=== PATIENT | female | born 1960 | race Caucasian/White ===

== ENCOUNTER 2021-08-20 11:22 | Emergency (ER) | payer MEDICARE, SELFPAY ==
--- NOTE | 2021-08-20 11:32 | ED.URI ---
HPI - URI/Sore Throat General Chief Complaint: Upper Respiratory Infection Stated Complaint: runny nose,cough Time Seen by Provider: 08/20/21 11:32 Source: patient Mode of arrival: ambulatory Limitations: no limitations History of Present Illness HPI Narrative: Ms. Gutierrez is a 60-year-old female patient presenting to the clinic today with complaints of a cough and a runny nose times 6 days. She reports she has a productive cough with sometimes clear, yellow, green phlegm. She is a current smoker. States that she has a lot of pressure over her left maxillary sinus. Denies any fever or chills. Denies any known strep exposure, influenza exposure or COVID exposure. Related Data Home Medications Medication Instructions Recorded Confirmed albuterol sulfate 90 mcg/actuation 1 inh inhalation DIRECTED 04/05/19 aerosol inhaler atorvastatin 40 mg tablet (Lipitor) 40 mg PO DAILY 08/20/21 08/20/21 bupropion HCl 150 mg 24 hr tablet, 150 mg PO DAILY 08/20/21 08/20/21 extended release levothyroxine 112 mcg tablet 112 mcg PO DAILY 08/20/21 08/20/21 lisinopril 20 mg tablet 20 tablet DAILY 08/20/21 08/20/21 varenicline 0.5 mg tablet 0.5 mg PO DIRECTED 08/20/21 08/20/21 Allergies Allergy/AdvReac Type Severity Reaction Status Date / Time hydrochlorothiazide Allergy Rash Verified 08/20/21 11:46 ADHESIVE TAPE Allergy Mild BLISTERS Uncoded 08/20/21 11:46 Review of Systems Review of Systems: Pertinent positives per HPI. Patient denies any fever, chills, rash, headache, visual changes, dizziness, cough, runny nose, sore throat, shortness of breath, chest pain, palpitations, nausea, vomiting, diarrhea, constipation, abdominal pain, or any urinary issues. [facility] Family History Family History Father Hypertension Family history of heart disease in male family member before age 55 Sibling Hypertension Family history of liver disease Family history of lung cancer Mother Family history of lung cancer Social History Social History Alcohol intake: never Comments At the time of my signature, I reviewed and agree with the nursing past medical, surgical, social, and family history. There is no relevant family history pertinent to the patient complaint. Exam Narrative: General: Well-developed, well nourished, in no apparent distress Head: Normocephalic, atraumatic Eyes: Pupils equally round and reactive to light bilaterally, EOM intact, sclera and conjunctive clear, no discharge, lids normal Ears: TMs intact and clear, ear canals clear, no drainage, grossly hearing normal. Nose: Nares patent, clear nasal discharge moderate inflammation, sinus tenderness over the left maxillary sinus Mouth: Oropharynx without lesions or masses, good dentition, MMM. Postnasal drip Neck: Supple, trachea midline, no enlargement of anterior or posterior cervical nodes, no thyroid masses or goiter palpable. Cardio: Regular rate and rhythm, s1 and s2 normal, no murmur appreciated. Resp: Clear to auscultation bilaterally with moderate airflow, no rhonchi, rales, wheezing or rubs Course Course Emergency Course: Portions of this record may have been created with voice recognition software. Level of Care: Express Care Visit Vital Signs Vital signs: Vital Signs Temperature 36.4 C 08/20/21 11:40 Pulse Rate 69 08/20/21 11:40 Respiratory Rate 20 08/20/21 11:40 Blood Pressure 125/70 08/20/21 11:40 Pulse Oximetry 97 08/20/21 11:40 Oxygen Delivery Room Air 08/20/21 11:40 Temperature 36.4 C 08/20/21 11:40 Pulse Rate 69 08/20/21 11:40 Respiratory Rate 20 08/20/21 11:40 Blood Pressure 125/70 08/20/21 11:40 Pulse Oximetry 97 08/20/21 11:40 Oxygen Delivery Room Air 08/20/21 11:40 Vital signs reviewed MDM - URI/Sore Throat MDM Narrative Medical decision making narrative: At
[2021-08-20 11:40] VITALS: BP 125/70; PULSE 69; RESP 20; TEMP 36.4; O2SAT 97
== END 2021-08-20 11:58 | disposition home or self-care (01) ==
PROVIDERS: Emergency Provider Nurse Practitioner Family
DX: J06.9 Acute upper respiratory infection, unspecified (principal); E78.00 Pure hypercholesterolemia, unspecified; I10 Essential (primary) hypertension; J44.9 Chronic obstructive pulmonary disease, unspecified; F17.200 Nicotine dependence, unspecified, uncomplicated; E03.9 Hypothyroidism, unspecified; Z85.43 Personal history of malignant neoplasm of ovary
CPT/HCPCS: 99213; G0463

== ENCOUNTER 2021-08-22 14:29 | Emergency (ER) | payer MEDICARE, SELFPAY ==
--- NOTE | ~2021-08-22 | XR_ITS ---
EXAMINATION: XR chest 2V DATE: 08/22/2021 14:54 INDICATION: Productive cough. TECHNIQUE: Frontal and lateral views of the chest were obtained on 3 radiographs. COMPARISON: Chest 2 views 04/05/2019, chest CT 06/03/2010 FINDINGS: The chest demonstrates clear lungs without pneumonia, pleural effusion, or pneumothorax. Th e heart size is normal. IMPRESSION: 1. No acute cardiopulmonary disease. Reviewed, dictated and finalized at location A.
[2021-08-22 14:42] VITALS: BP 107/54; PULSE 77; RESP 18; TEMP 36.3; O2SAT 96
--- NOTE | 2021-08-22 14:47 | ED.URI ---
HPI - URI/Sore Throat General Chief Complaint: Upper Respiratory Infection Stated Complaint: Cough,Congestion,Stuffy Nose Time Seen by Provider: 08/22/21 14:45 History of Present Illness HPI Narrative: Muriel Gutierrez female who was seen here on the first who denied having any exposure to strep, flu, or COVID, who came here with 6 days of productive cough; she was given prednisone and discharged and patient filed report that an adequate treatment was provided. Her PMH includes elevated cholesterol, anxiety, hypothyroid, hypertension, and she is returned for further evaluation. Chest x-ray ordered Related Data Home Medications Medication Instructions Recorded Confirmed albuterol sulfate 90 mcg/actuation 1 inh inhalation DIRECTED 04/05/19 08/22/21 aerosol inhaler atorvastatin 40 mg tablet (Lipitor) 40 mg PO DAILY 08/20/21 08/22/21 bupropion HCl 150 mg 24 hr tablet, 150 mg PO DAILY 08/20/21 08/22/21 extended release levothyroxine 112 mcg tablet 112 mcg PO DAILY 08/20/21 08/22/21 lisinopril 20 mg tablet 20 tablet DAILY 08/20/21 08/22/21 varenicline 1 mg tablet 1 tablet PO DAILY 08/22/21 08/22/21 Allergies Allergy/AdvReac Type Severity Reaction Status Date / Time hydrochlorothiazide Allergy Mild Rash Verified 08/22/21 14:35 ADHESIVE TAPE Allergy Mild BLISTERS Uncoded 08/22/21 14:35 Review of Systems Review of Systems: CONSTITUTIONAL: Denies fever, chills, sweats. EYES: Denies visual changes, redness, discharge. ENT: Denies rhinorrhea, congestion, sore throat, otalgia. CARDIOVASCULAR: Denies chest pain, palpitations, edema. RESPIRATORY: Denies dyspnea, wheezing, cough complaining of coughing and decreased voice GASTROINTESTINAL: Denies abdominal pain, nausea, vomiting, diarrhea. GENITOURINARY: Denies dysuria, hematuria, abnormal discharge SKIN: Denies rash or itching. NEUROLOGIC: Denies numbness, or focal weakness. PSYCHIATRIC: Denies anxiety or depression. [facility] Past Medical History Medical History High cholesterol Hypertension Hypothyroid Family History Family History Father Hypertension Family history of heart disease in male family member before age 55 Sibling Hypertension Family history of liver disease Family history of lung cancer Mother Family history of lung cancer Social History Social History (Updated 08/22/21 @ 14:53 by Geraldine Suarez CNP) Smoking packs per day: 1 Smoking cigarettes per day: 20.0 Years smoked: 40 Smoking pack-years: 40.00 Smoking status: Current every day smoker Alcohol intake: never Comments At time of signature, I agree with nursing past medical, surgical, social and family history. There is no relevant family history pertinent to the presenting complaint. Exam Narrative: GENERAL: This is a well-nourished, well-developed patient, with mild cough, in mild distress. HEAD: normocephalic, atraumatic. EYES: Sclera clear/white. Vision is grossly intact. EARS: External ears normal, . Hearing grossly intact. NOSE: External nose normal without nasal discharge, nares without redness, no rhinorrhea. THROAT: Mucous membranes moist, posterior pharynx mildly erythematous NECK: Neck supple, non-tender CARDIOVASCULAR: Regular rate and rhythm without murmurs, gallops, or rubs. RESPIRATORY:Coarse to auscultation. Breath sounds equal bilaterally. Occ wheezes,no rales, or rhonchi. GASTROINTESTINAL: Abdomen soft, non-tender, SKIN: warm, intact with no suspicious lesions or rash, good texture and turgor. NEURO: awake, alert, and oriented to person, place and time. There were no obvious focal neurologic abnormalities. Steady gait EXTREMITIES: Normal range of motion. BACK: Nontender without deformity Course Course Emergency Course: Started prednisone that she received on 08/20 yesterday. patient requested nurse do a COVID and flu swab-both were negati
== END 2021-08-22 15:32 | disposition home or self-care (01) ==
PROVIDERS: Emergency Provider Nurse Practitioner
DX: J06.9 Acute upper respiratory infection, unspecified (principal); Z20.822 Contact with and (suspected) exposure to COVID-19; F17.210 Nicotine dependence, cigarettes, uncomplicated; E78.00 Pure hypercholesterolemia, unspecified; I10 Essential (primary) hypertension; E03.9 Hypothyroidism, unspecified; F41.9 Anxiety disorder, unspecified
CPT/HCPCS: 71046; 87426; 87804; 99213; C9803; G0463

== ENCOUNTER 2023-10-01 10:38 | Outpatient (CLI) | payer MEDICARE, SELFPAY ==
--- NOTE | ~2023-10-01 | XR_ITS ---
Left Knee Technique: AP, lateral, and sunrise views were obtained. Clinical History: Pain Findings: No fracture or dislocation is seen. There is medial joint line spurring. There is minimal p atellar spurring. Soft tissues are unremarkable. No joint effusion is seen. Impression: Mild degenerative change, as above. Reviewed, dictated and finalized at location M. Impression: Mild degenerative change, as above.
--- NOTE | ~2023-10-01 | XR_ITS ---
AP and lateral views of the bilateral hips Clinical history: Pain Findings: No acute fracture or dislocation is seen. Osseous alignment is anatomic. Bilateral hip and SI joint spaces are preserved. Soft tissues are unremarkable. Impression: No significant abnormality is seen. Reviewed, dictated and finalized at location . Impression: No significant abnormality is seen.
== END 2023-10-01 10:39 ==
DX: M25.551 Pain in right hip (principal); M25.552 Pain in left hip; M17.12 Unilateral primary osteoarthritis, left knee
CPT/HCPCS: 73521; 73564